=== PATIENT | male | born 1950 | race Caucasian/White ===

== ENCOUNTER → 2019-07-13 11:42 | Outpatient (CLI) | payer OTHER, SELFPAY ==
--- NOTE | 2019-07-13 | DI.MRI.S_ITS ---
PROCEDURE: MR KNEE RT WO CON INDICATIONS: Knee pain - RIGHT TECHNIQUE: Noncontrast sagittal PD fast spin echo and T2 fast spin echo with fat saturation, sagittal 3-D FLASH with fat saturation; coronal T1 spin echo and PD fast spin echo with fat saturation, and axial PD fast spin echo with fat saturation through the knee. COMPARISON: None. FINDINGS: Image quality: Excellent. Menisci: There is a complex oblique tear involving posterior horn of medial meniscus extending to superior and inferior articulating surfaces. There is no focal lateral meniscal tear.. The meniscal root ligaments appear intact. Cruciate ligaments: The anterior and posterior cruciate ligaments appear intact. Medial structures: The medial collateral ligament appears intact. The posterior oblique ligament, semimembranosus tendon insertions, oblique popliteal ligament, and meniscocapsular junction appear intact. Visualized portions of the pes anserinus tendons appear normal. No abnormal bursal fluid. Lateral structures: The lateral collateral ligament, long and short heads of the biceps femoris tendon appear intact. The popliteus tendon appears normal; the popliteofibular ligament appears intact. The posterosuperior and anteroinferior popliteomeniscal fascicles appear intact. The arcuate and fabellofibular ligaments appear intact, on either side of the lateral inferior geniculate artery. Iliotibial band appears normal. Anterior structures: The quadriceps and patellar tendons appear intact. Patellar alignment is normal. No femoral trochlear dysplasia or ventral trochlear prominence. No edema in the infrapatellar fat pad. Bones and cartilage: No bone marrow contusions or fractures. Mild tricompartment osteoarthritis a low-grade chondromalacia is seen. Finding is slightly more prominent in the medial femorotibial compartment. Joint space: There is physiologic knee joint fluid. No Del Valle's cyst. Normal appearing synovial plicae are incidentally noted. IMPRESSION: 1. Complex oblique tear involving posterior horn of medial meniscus extending to both superior and inferior articulating surfaces. No evidence of focal lateral meniscal tear. 2. Mild tricompartmental osteoarthritis and low-grade chondromalacia. 3. Cruciate ligaments are intact. Dictated by: Marino Brannon M.D. on 07/13/2019 at 14:09 Approved by: Marino Brannon M.D. on 07/13/2019 at 14:17
== END ==
DX: M25.561 Pain in right knee (principal); S83.231A Complex tear of medial meniscus, current injury, right knee, initial encounter; M17.11 Unilateral primary osteoarthritis, right knee; M94.261 Chondromalacia, right knee
CPT/HCPCS: 73721

== ENCOUNTER 2019-09-07 08:47 | Day surgery (SDC) | payer OTHER, SELFPAY ==
[2019-09-01 08:05] VITALS: BMI 31.1
[2019-09-07 09:38] VITALS: BP 133/85; PULSE 88; RESP 16; TEMP 36.2; O2SAT 98; BMI 30.5
--- NOTE | 2019-09-07 10:46 | PM.PREOP ---
Pre-operative Note Interval Note History & Physical reviewed/Exam performed by Physician: Yes Changes to H&P: No
[2019-09-07] MEDS: CEFAZOLIN 2 GM/100 ML FROZ.PIGGY IV (11:25)
--- NOTE | 2019-09-07 11:47 | SUR.OPER ---
Supine on padded OR bed, head on pillow, arms secured on padded arm boards at <90 degrees abduction, legs uncrossed, safety belt at thigh, tape over blanket over lower legs.
[2019-09-07] MEDS: MORPHINE 4 MG/ML INJ SUBCUT (12:00)
[2019-09-07] MEDS: BUPIVACAINE 0.5% (PF) VIAL 30 ML INJ (12:00)
[2019-09-07 12:18] VITALS: BP 120/87; PULSE 75; RESP 10; TEMP 37.2; O2SAT 96
--- NOTE | 2019-09-07 12:20 | PM.OP.1 ---
Operative Date/Time/Diagnoses Date of procedure: 09/07/19 Time of procedure: 12:20 Pre-op diagnosis: 1. Right knee medial meniscus tear 2. Mild osteoarthritis of the right knee Post-op diagnosis: same Procedure & Clinicians Procedure: Right knee arthroscopic partial medial meniscectomy Same procedure as scheduled: Yes Indications: The patient is a 69-year-old gentleman who has had persistent medial knee pain that has not responded to non operative measures for an extended length of time. An MRI has revealed a medial meniscus tear and after discussion the risks benefits and alternatives he has agreed to proceed with arthroscopic partial medial meniscectomy. Risks discussed included but were not limited to: Failure to improve, stiffness, infection, nerve damage, deep venous thrombosis, pulmonary embolism, stroke, heart attack, permanent paralysis and . Surgeon: Denilson Middleton Click Yes if Unassisted: Yes Anesthesia Type: General and Local Operative Notes Findings: 1. Normal suprapatellar pouch 2. Mild chondromalacia of the patella, grade 2 in the central portion measuring approximately a cm diameter 3. Normal medial and lateral gutters with the exception of a fragment of medial meniscus evident in the medial gutter 4. Minimal chondromalacia of the medial femoral condyle and medial tibial plateau with a complex posterior horn degenerative medial meniscus tear 5. Intercondylar notch notable for normal ACL and visualized portion of the PCL. There was a complete septum type infrapatellar plica. 6. Lateral compartment with minimal degenerative fraying of the lateral meniscus with intact cartilage 7. Normal posterolateral compartment 8. Normal posterior medial compartment Closure Type: primary Specimen(s): none sent Prosthetic devices, grafts, tissues, transplants, or devices: None Estimated Blood Loss (mL): 5 Blood products transfused: none Tourniquet time (min): 0 Procedure in detail: The patient was seen in the preoperative area where he identified the right knee as the operative site and this was marked with my initials. He received preoperative antibiotics and was taken to the operating room placed on the operating room table in the supine position. He underwent induction of a general anesthetic. A tourniquet was placed about his proximal right thigh. A resident surgeon-out was performed. The right leg was prepared from the toes the tourniquet with ChloraPrep in the usual fashion draped through sterile drapes. The superior medial portal was created for the pump cannula. The lateral portal was created for the arthroscope that he was diagnostically arthroscoped the standard order with result given above. A medial portal was created for the probe and other tools. A suction shaver was used to remove the loose fragment of the medial meniscus after maneuvering it into the medial compartment using the probe. The chondromalacia on the patella and the lateral meniscus fraying were minor enough that they did not require treatment. At this point all arthroscopic equipment was removed. The wounds were closed with 4 0 Monocryl and Steri-Strips. The knee was injected with 20 mL 0.5% Marcaine with 4 mg of morphine for postoperative pain control. Dressings of sterile gauze, cast padding and an Jesse wrap were applied the patient was transported to the recovery room in good condition having tolerated the procedure well. Complications: none Post-operative Condition: stable Disposition: PACU Plan for aftercare: The patient will be allowed to resume activities as tolerated. He will be seen in the office for a checkup in 2 weeks.
[2019-09-07 12:23] VITALS: BP 120/83; PULSE 74; RESP 11; O2SAT 95
[2019-09-07 12:28] VITALS: BP 114/84; PULSE 86; RESP 19; O2SAT 98
[2019-09-07 12:33] VITALS: BP 136/91; PULSE 80; RESP 10; O2SAT 98
[2019-09-07 12:48] VITALS: BP 128/90; PULSE 86; RESP 12; TEMP 35.9; O2SAT 97
--- NOTE | 2019-09-07 12:53 | SUR.PHASEII ---
Patient A/O x 4. Tolerating po. Denies pain. CARRILLO's x 4. Report given to Harper.
== END 2019-09-07 13:10 | disposition home or self-care (01) ==
PROVIDERS: PCP Family Medicine; Visit Provider Orthopaedic Surgery
PROC: (CPT 29870; principal; 2019-09-07 10:45)
DX: S83.231A Complex tear of medial meniscus, current injury, right knee, initial encounter (principal); M17.11 Unilateral primary osteoarthritis, right knee; X50.1XXA Overexertion from prolonged static or awkward postures, initial encounter; Y93.H3 Activity, building and construction; J45.909 Unspecified asthma, uncomplicated; M22.41 Chondromalacia patellae, right knee
CPT/HCPCS: 29881; J0690; J1100; J2250; J2270; J2405; J2704; J3010